=== PATIENT | female | born 1990 | race Caucasian/White ===

== ENCOUNTER 2021-03-13 20:20 | Emergency (ER) | payer BC ==
[~2021-03-13] VITALS: Ht 162.6 cm; Wt 90.7 kg
[2021-03-13 20:34] VITALS: BP 147/82
--- NOTE | 2021-03-13 20:39 | NUR ---
PT SENT TO LOBBY
[2021-03-13] MEDS ORDERED: ACETAMINOPHEN 325 MG TAB PO ONE (23:20)
[2021-03-13 23:34] LABS: APPEARANCE,URINE CLEAR (CLEAR); BILIRUBIN,URINE NEGATIVE (NEGATIVE); BLOOD, URINE NEGATIVE (NEGATIVE); COLOR,URINE YELLOW (YELLOW); LEUKOCYTE ESTERASE ,URINE NEGATIVE (NEGATIVE); NITRITE, URINE NEGATIVE (NEGATIVE); UGLUCOSE NEGATIVE (NEGATIVE)
--- NOTE | 2021-03-13 23:53 | NUR ---
PT AMBULATED TO BED 01.
[2021-03-14] MEDS ORDERED: ACETAMINOPHEN 325 MG TAB ONE (00:34)
--- NOTE | 2021-03-14 00:45 | NUR ---
30 YO F BIB SELF WITH C/C OF TIGHTNESS IN THROAT AND CHEST X1 WK, WORSE AT NIGHT. PT STATES SHE FEELS SOB AND IS NOW GETTING WORSE WITH ACTIVITY, POSITION AND WITH TALKINGS. PT REPORTS FEELING BLOATED, AND STABBING ABD PAIN 8/10 TO RLQ AND LUQ THAT RADS TO R FLANK X1 DAY. PT DENIES FEVER, N/V, CHILLS. PT DENIES BURNING DURING URINATION BUT STATES SHE HAS HAD AN INCREASE IN FREQUENCY. LAST BM WAS THIS MORNING, STATES IT WAS NORMAL, GOES EVERY OTHER DAY. DENIES BLOOD IN STOOL. DENIES HX, RX AND ALLERG LMP:NOVEMBER
[2021-03-14] MEDS ORDERED: ALBU0.0912 INH (01:22)
[2021-03-14] MEDS ORDERED: PRED20TA5 PO (01:23)
[2021-03-14 01:37] VITALS: BP 147/82
--- NOTE | 2021-03-14 01:37 | NUR ---
Patient discharged with v/s stable. Written and verbal after care instructions given and explained. Patient alert, oriented and verbalized understanding of instructions. Ambulatory with steady gait. All questions addressed prior to discharge. ID band removed. Patient advised to follow up with PMD. Rx of PREDNISONE AND ALBUTEROL given. Patient educated on indication of medication including possible reaction and side effects. Opportunity to ask questions provided and answered.
== END 2021-03-14 01:37 | disposition home or self-care (01) ==
LOC: MED 20:20
DX: R06.02 Shortness of breath (principal); R14.0 Abdominal distension (gaseous)
CPT/HCPCS: 71045; 81003; 81025; 99284